=== PATIENT | female | born 1965 | race Caucasian/White ===

== ENCOUNTER 2022-01-24 09:23 | Observation (INO) ==
[2022-01-24] MEDS ORDERED: Aspirin 325 MG TABLET PO ONE (09:51)
[2022-01-24 10:01] LABS: Basophils % 0.6 %; Eosinophils # 0.2 K/mcL (0.0-0.6); Eosinophils % 3.7 %; Hematocrit 40.5 % (35.3-44.9); Hemoglobin 13.1 g/dL (11.5-15.4); Immature Granulocytes % 0.2 % (0-4); Lymphocytes # 1.8 K/mcL (0.6-4.6); Lymphocytes % 29.1 %; Mean Corpuscular HGB Conc 32.3 g/dL (31.6-35.5); Mean Corpuscular Hemoglobin 28.9 pg (28.0-33.3); Mean Corpuscular Volume 89.4 fL (83.0-100.0); Mean Platelet Volume 9.5 fL (9.4-12.4); Monocytes # 0.6 K/mcL (0.0-1.3); Monocytes % 10.4 %; Neutrophils # 3.5 K/mcL (1.6-8.9); Platelet Count 270 K/mcL (140-400); Red Blood Count 4.53 M/mcL (3.82-4.97); Red Cell Distribution Width 13.9 % (11.5-14.5); White Blood Count 6.2 K/mcL (4.3-11.1)
[2022-01-24 10:13] LABS: INR 1.3
[2022-01-24 10:16] LABS: Activated Partial Thrombo Time 39.3 Seconds (26.0-36.0)
[2022-01-24 10:17] LABS: BUN/Creatinine Ratio 15 (6-26); Blood Urea Nitrogen 10 mg/dL (6-20); Calcium 10.5 mg/dL (8.6-10.3); Carbon Dioxide 30 mEq/L (23-29); Chloride 101 mEq/L (98-107); Glucose 102 mg/dL (70-105); Osmolality,Calculated 287 (280-300); Potassium 3.3 mEq/L (3.5-5.1); Sodium 139 mEq/L (136-145); eGFR For African Americans > 60 (> 60); eGFR For Non-African Americans > 60 (> 60)
[2022-01-24 10:26] LABS: Troponin I < 0.03 ng/mL (< 0.04)
[2022-01-24] MEDS ORDERED: Isovue-370 500 ML BOTTLE IVP ONE (11:00)
[2022-01-24] MEDS ORDERED: Naloxone 0.4 MG/ML INJ IVP PRN (11:01)
[2022-01-24 11:18] LABS: Cholesterol 205 mg/dL (< 200); HDL Cholesterol 68 mg/dL (40-59); LDL Cholesterol,Calculated 108 mg/dL (< 100); Triglycerides 147 mg/dL (< 150)
[2022-01-24 11:20] LABS: Estimated Average Glucose 123 mg/dl; Hemoglobin A1C 5.9 %
[2022-01-24] MEDS: hydroCHLOROthiazide 25 MG TABLET PO SCH (12:38)
[2022-01-24] MEDS ORDERED: Perflutren Lipid Microsphere 1.3 ML in 0.9 % Sodium Chloride 8.7 ML IVP PRN (13:23)
[2022-01-24] MEDS: *HR* Heparin 5,000 UNIT/ML VIAL SQ SCH (17:08)
[2022-01-25] MEDS: *HR* Heparin 5,000 UNIT/ML VIAL SQ SCH ×2 (05:00→16:53)
[2022-01-25] MEDS ORDERED: Regadenoson 0.4 MG/5 ML SYRINGE IVP ONE (06:47)
[2022-01-25 06:59] LABS: BUN/Creatinine Ratio 17 (6-26); Blood Urea Nitrogen 12 mg/dL (6-20); Calcium 10.3 mg/dL (8.6-10.3); Carbon Dioxide 25 mEq/L (23-29); Chloride 99 mEq/L (98-107); Glucose 94 mg/dL (70-105); Osmolality,Calculated 286 (280-300); Phosphorous 3.5 mg/dL (2.7-4.5); Potassium 3.4 mEq/L (3.5-5.1); Sodium 138 mEq/L (136-145); eGFR For African Americans > 60 (> 60); eGFR For Non-African Americans > 60 (> 60)
[2022-01-25] MEDS: Aspirin 81 MG TAB.CHEW PO SCH (09:43)
[2022-01-25] MEDS: hydroCHLOROthiazide 25 MG TABLET PO SCH (09:43)
[2022-01-26] MEDS: *HR* Heparin 5,000 UNIT/ML VIAL SQ SCH (05:04)
[2022-01-26 09:06] LABS: Basophils % 0.5 %; Eosinophils # 0.2 K/mcL (0.0-0.6); Eosinophils % 2.8 %; Hematocrit 41.7 % (35.3-44.9); Hemoglobin 13.7 g/dL (11.5-15.4); Immature Granulocytes % 0.2 % (0-4); Lymphocytes # 1.9 K/mcL (0.6-4.6); Lymphocytes % 33.1 %; Mean Corpuscular HGB Conc 32.9 g/dL (31.6-35.5); Mean Corpuscular Hemoglobin 29.1 pg (28.0-33.3); Mean Corpuscular Volume 88.5 fL (83.0-100.0); Mean Platelet Volume 10.7 fL (9.4-12.4); Monocytes # 0.6 K/mcL (0.0-1.3); Monocytes % 11.2 %; Neutrophils # 2.9 K/mcL (1.6-8.9); Platelet Count 205 K/mcL (140-400); Red Blood Count 4.71 M/mcL (3.82-4.97); Segmented Neutrophils % 52.2 %; White Blood Count 5.6 K/mcL (4.3-11.1)
[2022-01-26] MEDS: Aspirin 81 MG TAB.CHEW PO SCH (09:26)
[2022-01-26] MEDS: hydroCHLOROthiazide 25 MG TABLET PO SCH (09:26)
[2022-01-26 09:44] LABS: BUN/Creatinine Ratio 23 (6-26); Blood Urea Nitrogen 14 mg/dL (6-20); Calcium 10.1 mg/dL (8.6-10.3); Carbon Dioxide 26 mEq/L (23-29); Chloride 103 mEq/L (98-107); Glucose 104 mg/dL (70-105); Osmolality,Calculated 285 (280-300); Potassium 3.6 mEq/L (3.5-5.1); Sodium 137 mEq/L (136-145); eGFR For African Americans > 60 (> 60); eGFR For Non-African Americans > 60 (> 60)
[2022-01-26] MEDS ORDERED: *HR* Heparin 10,000 UNIT/10 ML VIAL ONE (11:23)
[2022-01-26] MEDS ORDERED: Heparin 1,000 UNITS/500 mL 500 ML ONE (11:25)
[2022-01-26] MEDS ORDERED: ISOVUE-370 200 ML INFUS..BTL ONE (11:26)
[2022-01-26] MEDS ORDERED: Nitroglycerin 1,000 MCG/5 ML VIAL IV ONE (11:26)
[2022-01-26] MEDS ORDERED: 0.9 % Sodium Chloride 2,000 ML ONE (11:26)
[2022-01-26] MEDS ORDERED: *HR* Midazolam HCl 2 MG/2 ML VIAL ONE (11:44)
[2022-01-26] MEDS ORDERED: *HR* FentaNYL (PF) 100 MCG/2 ML VIAL ONE (11:44)
[2022-01-26] MEDS ORDERED: Ondansetron 4 MG/2 ML VIAL ONE (11:58)
[2022-01-26] MEDS ORDERED: Ondansetron 4 MG/2 ML VIAL IVP PRN (12:41)
[2022-01-26 14:33] VITALS: O2SAT 99
[2022-01-26 14:35] VITALS: BP 132/76; PULSE 69; TEMP 98.4
== END 2022-01-26 17:22 | disposition home or self-care (01) ==
LOC: EMEROOARM 09:23 → 3BNU 09:23 → SUATTDRO 11:08 → 3BNU 12:18
PROVIDERS: ADMIT Internal Medicine; ATTEND Internal Medicine